=== PATIENT | male | born 1980 | race Caucasian/White ===

== ENCOUNTER 2024-06-09 12:33 | Emergency (ER) | payer OTHER ==
[2024-06-09 13:16] LABS: BASOPHILS ABSOLUTE AUTO 0.04 K/uL (0.00-0.10); BASOPHILS PERCENT AUTO 0.5 % (0.1-1.3); EOSINOPHILS ABSOLUTE AUTO 0.19 K/uL (0.00-0.40); EOSINOPHILS PERCENT AUTO 2.2 % (0.0-5.4); HEMATOCRIT 36.7 % (38.4-49.7); IMMATURE GRAN PERCENT AUTO 0.2 % (0.0-0.7); LYMPHOCYTES ABSOLUTE AUTO 1.76 K/uL (0.8-3.3); LYMPHOCYTES PERCENT AUTO 19.9 % (11.4-47.7); MEAN CORPUSCULAR HEMOGLOBIN 29.7 pg (31.6-35.5); MEAN CORPUSCULAR HGB CONC 32.7 g/dL (31.6-35.5); MEAN CORPUSCULAR VOLUME 90.8 fL (81.4-99.0); MONOCYTES ABSOLUTE AUTO 0.55 K/uL (0.20-0.90); MONOCYTES PERCENT AUTO 6.2 % (3.3-12.6); NEUTROPHILS ABSOLUTE AUTO 6.27 K/uL (1.0-7.6); PLATELET COUNT,PLT 250 K/uL (130-375); RED BLOOD CELL COUNT 4.04 M/uL (4.14-5.76); WHITE BLOOD CELL COUNT,WBC 8.8 K/uL (3.2-11.0)
[2024-06-09 13:18] LABS: IMMATURE GRAN ABSOLUTE AUTO 0.02 K/uL (0.00-0.23)
[2024-06-09 13:37] LABS: A/G RATIO 0.9 (1.2-2.2); ALANINE AMINOTRANSFERASE,ALT 31 U/L (12-78); ALBUMIN 3.7 g/dL (3.4-5.0); ALKALINE PHOSPHATASE 96 U/L (46-116); ANION GAP 10.5 mmol/L (5.0-14.0); ASPARTATE AMNIOTRANSFERASE,AST 16 U/L (15-37); BILIRUBIN TOTAL 0.3 mg/dL (0.2-1.0); BLOOD UREA NITROGEN,BUN 14 mg/dL (7-18); CALCIUM 9.3 mg/dL (8.5-10.1); CARBON DIOXIDE,CO2 28 mmol/L (21-32); CHLORIDE,CL 102 mmol/L (100-108); CREATININE 1.1 mg/dL (0.8-1.3); EST CRCL DRUG DOSING (CG) 83.41 mL/min; ESTIMATED GFR 85 mL/min (>60); GLUCOSE RANDOM 91 mg/dL (74-106); POTASSIUM,K 3.8 mmol/L (3.6-5.2); PROTEIN TOTAL,TP 7.7 g/dL (6.4-8.2); SODIUM,NA 140 mmol/L (140-148)
== END 2024-06-09 14:15 | disposition home or self-care (01) ==
LOC: JP.ED 12:33
DX: K62.5 Hemorrhage of anus and rectum (principal)
CPT/HCPCS: 36415; 80053; 85025; 99284

== ENCOUNTER 2024-06-18 06:27 | Day surgery (SDC) | payer OTHER ==
[~2024-06-18 06:27] MED LIST: Lactated Ringers 1,000 ML IV SCH
[2024-06-18] MEDS: Lactated Ringers 1,000 ML IV SCH (07:07)
[2024-06-18] MEDS ORDERED: Midazolam 1 MG/ML 2 ML SDV ONE (07:11)
[2024-06-18] MEDS ORDERED: fentaNYL 50 MCG/ML SDV ONE (07:12)
[2024-06-18] MEDS ORDERED: Propofol 200 MG/20 ML SDV ONE ×2 (07:12→07:48)
== END 2024-06-18 08:49 | disposition home or self-care (01) ==
LOC: JP.SDS 06:27
PROVIDERS: ATTEND Family Medicine
DX: D12.0 Benign neoplasm of cecum (principal); K57.31 Diverticulosis of large intestine without perforation or abscess with bleeding; K64.4 Residual hemorrhoidal skin tags; K64.8 Other hemorrhoids; K64.5 Perianal venous thrombosis
CPT/HCPCS: 00811; 45380; J2250; J2704; J3010; J7120